=== PATIENT | male | born 1950 | race Caucasian/White ===

== ENCOUNTER 2017-10-16 13:28 | Day surgery (SDC) | payer OTHER ==
[~2017-10-16] VITALS: Ht 172.7 cm; Wt 65.4 kg
[~2017-10-16 13:28] MED LIST: ADENOCARD; AMLO5 PO; ASPI81CH PO; ATOR20 PO; Amlodipine Bes2.5 MG PO; CLON.1 PO; CLOP75 PO; Celexa10 MG PO; HARVONI 90-4001 EACH PO; LOSA50 PO; NEBI5 PO; NICO21TP; Nitrostat0.4 MG SL; OLME20 PO; PANT40 PO; TAMS.4ER PO; TIMOPTIC 0.5%1 EACH OP; TIROSINT50 MCG PO; TRAM50 PO; WELLBUTRIN
[2017-10-16] MEDS ORDERED: VARE1 PO (14:46)
== END 2017-10-16 17:28 | disposition home or self-care (01) ==
LOC: ORSCSDS 13:28
PROVIDERS: Internal Medicine Gastroenterology
PROC: 0DJD8ZZ Inspection of Lower Intestinal Tract, Via Natural or Artificial Opening Endoscopic (ICD-10-PCS; principal; 2017-10-16 14:15)
DX: Z86.010 Personal history of colon polyps (principal); B15.9 Hepatitis A without hepatic coma; B19.20 Unspecified viral hepatitis C without hepatic coma; I25.10 Atherosclerotic heart disease of native coronary artery without angina pectoris; I73.9 Peripheral vascular disease, unspecified; I10 Essential (primary) hypertension; E78.5 Hyperlipidemia, unspecified; F17.210 Nicotine dependence, cigarettes, uncomplicated
CPT/HCPCS: J7120

== ENCOUNTER 2017-11-15 13:55 | Day surgery (SDC) | payer OTHER ==
[~2017-11-15] VITALS: Ht 175.3 cm; Wt 60.9 kg
[~2017-11-15 13:55] MED LIST changes: +VARE1 PO
== END 2017-11-15 16:08 | disposition home or self-care (01) ==
LOC: ORSCSDS 13:55
PROVIDERS: Internal Medicine Gastroenterology
PROC: 0DBL8ZX Excision of Transverse Colon, Via Natural or Artificial Opening Endoscopic, Diagnostic (ICD-10-PCS; principal; 2017-11-15 15:15)
PROC: 0DBM8ZX Excision of Descending Colon, Via Natural or Artificial Opening Endoscopic, Diagnostic (ICD-10-PCS; principal; 2017-11-15 15:15)
PROC: 0DBN8ZX Excision of Sigmoid Colon, Via Natural or Artificial Opening Endoscopic, Diagnostic (ICD-10-PCS; principal; 2017-11-15 15:15)
DX: Z12.11 Encounter for screening for malignant neoplasm of colon (principal); D12.3 Benign neoplasm of transverse colon; D12.4 Benign neoplasm of descending colon; K63.5 Polyp of colon; K64.8 Other hemorrhoids; Z86.010 Personal history of colon polyps; I25.10 Atherosclerotic heart disease of native coronary artery without angina pectoris; I73.9 Peripheral vascular disease, unspecified; I10 Essential (primary) hypertension; E78.5 Hyperlipidemia, unspecified; E03.9 Hypothyroidism, unspecified; B19.20 Unspecified viral hepatitis C without hepatic coma; F41.9 Anxiety disorder, unspecified; B15.9 Hepatitis A without hepatic coma; F17.210 Nicotine dependence, cigarettes, uncomplicated; Z79.82 Long term (current) use of aspirin; Z79.899 Other long term (current) drug therapy
CPT/HCPCS: 88305; J1980; J7120